=== PATIENT | male | born 1965 | race Caucasian/White ===

== ENCOUNTER 2018-07-11 21:24 | Emergency (ER) | payer SELFPAY ==
[~2018-07-11] VITALS: Ht 177.8 cm; Wt 72.7 kg
[~2018-07-11 21:24] MED LIST: ACET500C OR; NO HOME MEDS; PRED; PREDPOW10 PO
[2018-07-11] MEDS ORDERED: LIDOCAINE 1% SDV INJ 30 ML VIAL SC SCH (22:30)
[2018-07-11] MEDS ORDERED: BACT800T5 PO (22:42)
[2018-07-11] MEDS ORDERED: LIDOCAINE 1% MDV 20ML VIAL IM ONE (22:45)
[2018-07-11] MEDS ORDERED: BACTRIM 160MG/800MG DS TAB PO ONE (22:45)
[2018-07-11] MEDS ORDERED: BACITRACIN OINT 30GM TOP ONE (22:50)
[2018-07-11 22:55] VITALS: BP 164/86
[2018-07-11 23:18] LABS: SOURCE, BODY FLUID URIC ACID RT ELBOW; URIC ACID, BODY FLUID 5.1 MG/DL (NOT ESTABLISHED)
== END 2018-07-11 23:02 | disposition home or self-care (01) ==
LOC: M ED 21:24
DX: L03.113 Cellulitis of right upper limb (principal); M70.31 Other bursitis of elbow, right elbow; Z88.6 Allergy status to analgesic agent; F17.210 Nicotine dependence, cigarettes, uncomplicated

== ENCOUNTER 2019-04-09 15:12 | Emergency (ER) | payer OTHER, SELFPAY ==
[~2019-04-09] VITALS: Ht 177.8 cm; Wt 72.7 kg
[~2019-04-09 15:12] MED LIST changes: +BACT800T5 PO
[2019-04-09] MEDS ORDERED: ACETAMINOPHEN 325 MG TAB PO ONE (15:45)
[2019-04-09] MEDS ORDERED: KETOROLAC 60 MG/2 ML VIAL (J1885) IM ONE (15:45)
[2019-04-09] MEDS ORDERED: HYDR-3713 PO (16:25)
[2019-04-09] MEDS ORDERED: IBUP-1022 PO (16:25)
[2019-04-09 16:35] VITALS: BP 157/95
--- NOTE | 2019-04-09 16:35 | REP ---
Left wrist four views: There are no comparison studies. There is soft tissue edema dorsally. There is a fracture of the scaphoid, however the margins are well corticated. This may represent an old fracture represent congenital variation. No other carpal bone fracture is identified on plain films. CT might be considered for further evaluation. There are bone cysts in the trapezium, hamate and triquetrum. The There is triangular fibrocartilage calcification suggestive of CPPD. Impression: Significant soft tissue edema dorsally. Navicular fracture, possibly old. No other fracture is identified. Bone cysts. Calcifications suggestive of CPPD. Consider CT for further evaluation. Electronically Signed by Alden Hager MD 04/09/2019 04:27 P
--- NOTE | 2019-04-09 17:26 | REP ---
CT scan left wrist without contrast: History: Injury in a fall the previous day. Pain and swelling. Decreased range of motion. Comparison radiographs are from earlier this date. Technique: Helical scanning is acquired. Coronal and sagittal MPR images are generated and reviewed. CT findings: There is diffuse osteopenia. 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 There is considerable osteoarthritic arthropathy involving the first carpometacarpal articulation and to a lesser extent the intercarpal articulations and the radiocarpal articulation. There is chondrocalcinosis at the radiocarpal articulation. There is no evidence of acute fracture. There are multiple subcortical cysts in the carpal bones and notably the triquetrum, hamate and the multangulars. This suggests arthropathy as well. There is a 7 mm dorsally positioned periarticular soft tissue ossicle adjacent to the proximal pole of the capitate. There are smaller ossicles adjacent to this. 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 Chondrocalcinosis is noted. Multiple subcortical cysts suggest arthropathy as well. There is diffuse soft tissue swelling. No acute fractures seen. Electronically Signed by Felix Crum MD 04/09/2019 06:40 P
== END 2019-04-09 16:39 | disposition home or self-care (01) ==
LOC: M ED 15:12
DX: S63.522A Sprain of radiocarpal joint of left wrist, initial encounter (principal); W00.0XXA Fall on same level due to ice and snow, initial encounter; Y99.0 Civilian activity done for income or pay; M19.032 Primary osteoarthritis, left wrist; M11.232 Other chondrocalcinosis, left wrist; M85.642 Other cyst of bone, left hand; S62.002D Unspecified fracture of navicular [scaphoid] bone of left wrist, subsequent encounter for fracture with routine healing; M79.89 Other specified soft tissue disorders; F17.210 Nicotine dependence, cigarettes, uncomplicated
CPT/HCPCS: 73110; 73200; 96372; 99284; J1885

== ENCOUNTER 2020-06-24 13:45 | Emergency (ER) | payer OTHER, SELFPAY ==
[~2020-06-24] VITALS: Ht 177.8 cm; Wt 74.2 kg
[~2020-06-24 13:45] MED LIST changes: +HYDR-3713 PO; +IBUP-1022 PO
[2020-06-24] MEDS ORDERED: cefTRIAXone SOD 1 GM in D5W MINI-BAG PLUS 50 ML IV ONE (15:35)
[2020-06-24] MEDS ORDERED: DOXY100C37 PO (15:39)
--- NOTE | 2020-06-24 15:46 | REP ---
INDICATION: possible abscess r stump leg. COMPARISON: None. TECHNIQUE: Real-time sonographic evaluation of right foot soft tissues performed in the region of swelling. FINDINGS: No abscess or fluid collection is seen. There is scattered soft tissue edema in the area of swelling. IMPRESSION: No evidence of soft tissue abscess at the site of redness and swelling right foot. <Electronically signed by Alden Gutiérrez > 06/24/20 [id number]
[2020-06-24 15:49] LABS: BASO # 0.1 10^3/uL (0.0-0.2); BASO % 1.4 % (0.0-1.0); EOS # 0.2 10^3/uL (0.0-0.5); EOS % 4.3 % (0.0-3.0); HEMATOCRIT 47.6 % (42.0-52.0); HEMOGLOBIN 16.6 g/dl (13.5-17.5); LYMPH # 1.2 10^3/uL (1.5-5.0); MEAN CORPUSCULAR HEMOGLOBIN 32.2 pg (27.0-33.0); MEAN CORPUSCULAR HGB CONC 34.9 g/dl (32.0-36.5); MEAN CORPUSCULAR VOLUME 92.4 fl (80.0-96.0); MONO # 1.1 10^3/uL (0.0-0.8); MONO % 19.5 % (2.0-8.0); NEUTROPHILS # 2.8 10^3/uL (1.5-8.5); NEUTROPHILS % 50.6 % (36.0-66.0); PLATELET COUNT, AUTOMATED 210 10^3/uL (150-450); RED BLOOD COUNT 5.15 10^6/uL (4.30-6.10); WHITE BLOOD COUNT 5.6 10^3/uL (4.0-10.0)
[2020-06-24 16:12] LABS: ALBUMIN 3.9 GM/DL (3.2-5.2); BILIRUBIN,DIRECT 0.2 MG/DL (0.0-0.2); BILIRUBIN,TOTAL 0.4 MG/DL (0.2-1.0); C REACTIVE PROTEIN QUANTITATIV 2.42 MG/DL (0.00-0.30); TOTAL PROTEIN 8.1 GM/DL (6.4-8.2)
[2020-06-24 16:18] LABS: ERYTHROCYTE SEDIMENTATION RATE 4 mm/hr (0-20)
[2020-06-24 16:26] VITALS: BP 150/89
--- NOTE | 2020-06-24 18:41 | REP ---
INDICATION: LT FOOT SWELLING. COMPARISON: None. TECHNIQUE: Real-time sonographic evaluation of left foot performed at the site of swelling. FINDINGS: The original physician order for this exam stated swelling of the right foot. Initial dictation stated findings regarding the right foot. However the ultrasound was actually performed of the left foot in the region of swelling. The physician order was revised. There is soft tissue edema at the site of swelling in the left foot. No abscess or fluid collection is seen. IMPRESSION: No abscess or fluid collection at the site of swelling in the left foot. <Electronically signed by Alden Gutiérrez > 06/24/20 [id number]
== END 2020-06-24 16:38 | disposition home or self-care (01) ==
LOC: M ED 13:45
DX: L03.116 Cellulitis of left lower limb (principal); F17.200 Nicotine dependence, unspecified, uncomplicated
CPT/HCPCS: 76882; 80047; 80076; 83605; 85025; 85652; 86140; 87040; 96365; 99284; J0696

== ENCOUNTER 2020-07-22 18:45 | Emergency (ER) | payer SELFPAY ==
[~2020-07-22] VITALS: Ht 177.8 cm; Wt 78.1 kg
[2020-07-22 18:45] VITALS: BP 152/95
[~2020-07-22 18:45] MED LIST changes: +DOXY100C37 PO
[2020-07-22] MEDS ORDERED: TRIAMCINOLONE ACET 0.1% OINTMENT 15 GM TOP STA (19:52)
[2020-07-22] MEDS ORDERED: hydrOXYzine 25 MG TAB PO STA (19:52)
[2020-07-22] MEDS ORDERED: TRIAMCINOLONE ACET 0.1% OINTMENT 80 GM TOP ONE (20:00)
[2020-07-22] MEDS ORDERED: TRIA1OI80 TOP (20:01)
[2020-07-22] MEDS ORDERED: HYDR-3363 PO (20:01)
== END 2020-07-22 20:43 | disposition home or self-care (01) ==
LOC: M ED 18:45
DX: I87.2 Venous insufficiency (chronic) (peripheral) (principal); L29.9 Pruritus, unspecified; F17.200 Nicotine dependence, unspecified, uncomplicated

== ENCOUNTER 2022-12-31 16:40 | Emergency (ER) | payer MEDICAID, OTHER, SELFPAY ==
[~2022-12-31] VITALS: Ht 177.8 cm; Wt 77.4 kg
[~2022-12-31 16:40] MED LIST changes: +DOXY-443 PO; -DOXY100C37 PO; +HYDR-3363 PO; +TRIA1OI80 TOP
[2022-12-31 16:41] VITALS: BP 164/94; TEMP 99.3; O2SAT 94
[2022-12-31] MEDS ORDERED: IBUPROFEN 600MG TAB PO ONE (20:00)
[2022-12-31] MEDS ORDERED: IBUP-1022 PO (20:01)
== END 2022-12-31 20:15 | disposition home or self-care (01) ==
LOC: M ED 16:40
DX: S62.002K Unspecified fracture of navicular [scaphoid] bone of left wrist, subsequent encounter for fracture with nonunion (principal); M19.032 Primary osteoarthritis, left wrist; X50.9XXA Other and unspecified overexertion or strenuous movements or postures, initial encounter; F10.10 Alcohol abuse, uncomplicated; Z79.1 Long term (current) use of non-steroidal anti-inflammatories (NSAID)

== ENCOUNTER → 2023-10-02 | Outpatient (REF) | payer OTHER ==
[~2023-10-02] MED LIST changes: +DOXY-323 PO; -DOXY-443 PO
[2023-10-02 18:08] LABS: ALKALINE PHOSPHATASE 92 U/L (46-116); ALT/SGPT 16 U/L (7.0-40); AST/SGOT < 8 U/L (<34); BILIRUBIN,TOTAL 0.6 MG/DL (0.3-1.2); BLOOD UREA NITROGEN 6 MG/DL (9-23); CALCIUM LEVEL 9.3 MG/DL (8.3-10.6); CARBON DIOXIDE LEVEL 28 MMOL/L (20-31); CHLORIDE LEVEL 105 MMOL/L (98-107); CHOLESTEROL LEVEL 183 MG/DL (<200); CHOLESTEROL RISK RATIO 5.28 (<5); CREATININE FOR GFR 0.82 MG/DL (0.70-1.30); GLOMERULAR FILTRATION RATE > 60.0 (>49); GLUCOSE, FASTING 110 MG/DL (74-106); HDL CHOLESTEROL 34.6 MG/DL (>40); LDL CHOLESTEROL 123.6 MG/DL (<100); NON-HDL-C 148.4 MG/DL; POTASSIUM SERUM 3.6 MMOL/L (3.5-5.1); SODIUM LEVEL 141 MMOL/L (136-145); TOTAL PROTEIN 7.3 G/DL (5.7-8.2); TRIGLYCERIDES LEVEL 124 MG/DL (<150)
[2023-10-02 18:11] LABS: TOTAL 25(OH) VITAMIN D 20.8 NG/ML (20.0-100.0)
[2023-10-02 18:12] LABS: THYROID STIMULATING HORMONE 1.232 uIU/ML (0.55-4.78)
== END ==
LOC: M LAB REF 16:50
PROVIDERS: ATTEND Physician Assistant
DX: Z11.9 Encounter for screening for infectious and parasitic diseases, unspecified (principal); E66.9 Obesity, unspecified; E55.9 Vitamin D deficiency, unspecified; R03.0 Elevated blood-pressure reading, without diagnosis of hypertension

== ENCOUNTER → 2023-11-13 | Outpatient (CLI) | payer OTHER | LOC: M RAD 10:21 | PROVIDERS: ATTEND Physician Assistant | DX: R06.00 Dyspnea, unspecified (principal) ==

== ENCOUNTER 2023-12-05 07:23 | Day surgery (SDC) | payer OTHER ==
[~2023-12-05] VITALS: Ht 177.8 cm; Wt 77.8 kg
[~2023-12-05 07:23] MED LIST changes: +ATOR1TAB21 PO; +CEFUROXIME 1MG/0.1ML INTRACAMERAL INJ As Ordered ONE; +LIDOCAINE 1% SDV 5ML VIAL As Ordered ONE; +MIDAZOLAM INJ 2MG/2ML VIAL As Ordered ONE; +PHENYLEPHRINE 10% OPHTH SOL 5ML OD PRN; +fentaNYL 100 MCG/2 ML INJECTION As Ordered ONE
[2023-12-05] MEDS: LIDOCAINE 3.5 % 1ML OPHTH TOPICAL GEL OU ONE (08:38)
[2023-12-05] MEDS: TROPICAMIDE 1% OPHTH SOLN 15ML OD SCH (08:38)
[2023-12-05] MEDS: ATROPINE SULFATE 1% OPHTH SOLN 2ML BTL OD SCH (08:38)
[2023-12-05] MEDS: OFLOXACIN 0.3 % (OCUFLOX) OPTH SOL 5ML OD ONE (08:38)
[2023-12-05] MEDS: PHENYLEPHRINE 2.5% OPHTH SOL 2ML OD SCH (08:38)
[2023-12-05] MEDS ORDERED: BSS IRRIG/VANCO(10MG)/TOBRA(5MG)/EPINEPH(1:1000-0.5CC)500ML BAG-ORONLY As Ordered ONE (09:49)
[2023-12-05 11:36] VITALS: BP 159/90; TEMP 97.7; O2SAT 96
== END 2023-12-05 11:59 | disposition home or self-care (01) ==
LOC: M SDC 07:23
PROVIDERS: ATTEND Ophthalmology
DX: H25.11 Age-related nuclear cataract, right eye (principal); E78.5 Hyperlipidemia, unspecified; Z79.899 Other long term (current) drug therapy; F17.218 Nicotine dependence, cigarettes, with other nicotine-induced disorders
CPT/HCPCS: 66984; J0697; J2250; J3010; V2632

== ENCOUNTER 2024-01-27 05:58 | Day surgery (SDC) | payer OTHER ==
[2023-12-31] MEDS: BSS IRRIG/VANCO(10MG)/TOBRA(5MG)/EPINEPH(1:1000-0.5CC)500ML BAG-ORONLY As Ordered ONE (08:40)
[2023-12-31] MEDS: LIDOCAINE 1% SDV 5ML VIAL As Ordered ONE (08:41)
[2023-12-31] MEDS: CEFUROXIME 1MG/0.1ML INTRACAMERAL INJ As Ordered ONE (08:45)
[~2024-01-27] VITALS: Ht 177.8 cm; Wt 79.6 kg
[~2024-01-27 05:58] MED LIST changes: +ATROPINE SULFATE 1% OPHTH SOLN 2ML BTL OS SCH; -CEFUROXIME 1MG/0.1ML INTRACAMERAL INJ As Ordered ONE; -DOXY-323 PO; +DOXY-441 PO; -LIDOCAINE 1% SDV 5ML VIAL As Ordered ONE; +LOSA100T46 PO; -PHENYLEPHRINE 10% OPHTH SOL 5ML OD PRN; +PHENYLEPHRINE 10% OPHTH SOL 5ML OS PRN; +PHENYLEPHRINE 2.5% OPHTH SOL 2ML OS SCH; +TROPICAMIDE 1% OPHTH SOLN 15ML OS SCH
[2024-01-27] MEDS ORDERED: PHENYLEPHRINE 10% OPHTH SOL 5ML OS PRN (06:00)
[2024-01-27] MEDS: OFLOXACIN 0.3 % (OCUFLOX) OPTH SOL 5ML OS ONE ×2 (07:00)
[2024-01-27] MEDS: LIDOCAINE 3.5 % 1ML OPHTH TOPICAL GEL OU ONE ×2 (07:23)
[2024-01-27] MEDS: PHENYLEPHRINE 2.5% OPHTH SOL 2ML OS SCH (07:23)
[2024-01-27] MEDS: ATROPINE SULFATE 1% OPHTH SOLN 2ML BTL OS SCH (07:23)
[2024-01-27] MEDS: TROPICAMIDE 1% OPHTH SOLN 15ML OS SCH (07:23)
[2024-01-27 08:58] VITALS: BP 111/76; TEMP 98.2; O2SAT 95
== END 2024-01-27 09:39 | disposition home or self-care (01) ==
LOC: M SDC 05:58
PROVIDERS: ATTEND Ophthalmology
DX: H25.12 Age-related nuclear cataract, left eye (principal); H57.03 Miosis; I10 Essential (primary) hypertension; E78.5 Hyperlipidemia, unspecified; F17.210 Nicotine dependence, cigarettes, uncomplicated; Z79.899 Other long term (current) drug therapy
CPT/HCPCS: 66982; 92015; J0697; J2250; J3010; V2632

== ENCOUNTER → 2024-04-28 | Outpatient (REF) | payer OTHER ==
[~2024-04-28] MED LIST changes: -ATROPINE SULFATE 1% OPHTH SOLN 2ML BTL OS SCH; -MIDAZOLAM INJ 2MG/2ML VIAL As Ordered ONE; -PHENYLEPHRINE 10% OPHTH SOL 5ML OS PRN; -PHENYLEPHRINE 2.5% OPHTH SOL 2ML OS SCH; -TROPICAMIDE 1% OPHTH SOLN 15ML OS SCH; -fentaNYL 100 MCG/2 ML INJECTION As Ordered ONE
[2024-04-28 13:33] LABS: CREATININE, URINE 180.5 MG/DL
[2024-04-28 14:26] LABS: BLOOD UREA NITROGEN 10 MG/DL (9-23); CARBON DIOXIDE LEVEL 26 MMOL/L (20-31); CHLORIDE LEVEL 100 MMOL/L (98-107); CHOLESTEROL LEVEL 121 MG/DL (<200); CHOLESTEROL RISK RATIO 2.57 (<5); CREATININE FOR GFR 1.06 MG/DL (0.70-1.30); GLOMERULAR FILTRATION RATE > 60.0 (>49); GLUCOSE, FASTING 81 MG/DL (74-106); HDL CHOLESTEROL 46.9 MG/DL (>40); LDL CHOLESTEROL 50.7 MG/DL (<100); NON-HDL-C 74.1 MG/DL; SODIUM LEVEL 137 MMOL/L (136-145); TRIGLYCERIDES LEVEL 117 MG/DL (<150)
== END ==
LOC: M LAB REF 12:18
PROVIDERS: ATTEND Physician Assistant
DX: I10 Essential (primary) hypertension (principal); E78.5 Hyperlipidemia, unspecified

== ENCOUNTER → 2024-06-09 | Outpatient (CLI) | payer OTHER | LOC: M RAD 13:33 | PROVIDERS: ATTEND Physician Assistant | DX: Z12.2 Encounter for screening for malignant neoplasm of respiratory organs (principal); F17.210 Nicotine dependence, cigarettes, uncomplicated ==